=== PATIENT | female | born 1955 | race Caucasian/White ===

== ENCOUNTER 2017-03-27 13:34 | Emergency (ER) | payer SELFPAY ==
[2017-03-27] MEDS ORDERED: Ketorolac 60 MG/2 ML SDV IM ONE (15:00)
--- NOTE | 2017-03-27 15:20 | EDM.PDOC ---
ED HPI GENERAL MEDICAL PROBLEM - General Chief Complaint: ENT Problem Stated Complaint: FACIAL SWELLING, RIGHT SIDE Time Seen by Provider: 03/27/17 14:15 Source of Information: Reports: Patient, Provider History Limitations: Reports: No Limitations - History of Present Illness INITIAL COMMENTS - FREE TEXT/NARRATIVE: 61-year-old female is sent in from the clinic because of worsening right-sided facial swelling. Over the last 3 days she's developed pain and swelling on the right lateral face. It started with a localized pain just under the zygomatic area on the right side, she was seen yesterday and started on antibiotics but it seems to be worsening. No significant erythema, no fever. Severity: Moderate Associated Symptoms: Denies: Fever/Chills, Headaches, Shortness of Breath Right Face Pain Score (Numeric/FACES): 9 - Related Data Allergies Allergy/AdvReac Type Severity Reaction Status Date / Time acetaminophen [From Tylenol] Allergy Cannot Verified 03/27/17 13:52 Remember Home Meds: Home Meds Cephalexin [Cephalexin] 500 mg PO TID 03/27/17 [History] Cholecalciferol (Vitamin D3) [D3-2000] 2,000 - 4,000 unit PO DAILY 03/27/17 [ History] Cyanocobalamin (Vitamin B-12) [Vitamin B-12] 1,000 mcg PO ASDIRECTED 03/27/17 [ History] Multivitamin [Multivitamins] 1 tab PO DAILY 03/27/17 [History] Past Medical History [employer] History: Reports: - Infectious Disease History Infectious Disease History: Reports: Chicken Pox, Measles, Mumps - Past Surgical History HEENT Surgical History: Reports: Tonsillectomy Female Surgical History: Reports: Section Social & Family History - Caffeine Use Caffeine Use: Reports: Coffee - Recreational Drug Use Recreational Drug Use: No ED ROS ENT - Review of Systems Review Of Systems: See Below Constitutional: Denies: Fever, Chills, Malaise HEENT: Reports: Throat Pain, Other (Facial pain and swelling on the right side, she can feel some drainage) Respiratory: Denies: Shortness of Breath, Cough Cardiovascular: Denies: Chest Pain GI/Abdominal: Denies: Nausea, Vomiting ED EXAM, ENT - Physical Exam Exam: See Below Exam Limited By: No Limitations General Appearance: Alert, No Apparent Distress Eye Exam: Bilateral Eye: Normal Inspection Mouth/Throat: Other (Patient has tense swelling of the bucca mucosa on the right side, marked tenderness to palpation and a small amount of purulent exudate from the parotid duct on the right side. The swelling extends upward to the preauricular area and to the corner of the right mandible.) Course - Vital Signs Last Recorded V/S: Last Vital Signs Temp 98.5 F 03/27/17 13:58 Pulse 95 03/27/17 13:58 Resp 16 03/27/17 13:58 BP 184/90 H 03/27/17 13:58 Pulse Ox 98 03/27/17 13:58 - Orders/Labs/Meds Labs: Laboratory Tests 03/27/17 03/27/17 Range/Units 14:35 14:46 WBC 12.8 H (4.5-11.0) K/uL RBC 4.78 (3.30-5.50) M/uL Hgb 14.1 (12.0-15.0) g/dL Hct 42.0 (36.0-48.0) % MCV 88 (80-98) fL MCH 30 (27-31) pg MCHC 34 (32-36) % Plt Count 203 (150-400) K/uL Neut % (Auto) 76 H (36-66) % Lymph % (Auto) 12 L (24-44) % Toole % (Auto) 12 H (2-6) % Eos % (Auto) 1 L (2-4) % Baso % (Auto) 0 (0-1) % Sodium 141 (140-148) mmol/L Potassium 4.0 (3.6-5.2) mmol/L Chloride 103 (100-108) mmol/L Carbon Dioxide 28 (21-32) mmol/L Anion Gap 10.4 (5.0-14.0) mmol/L BUN 16 (7-18) mg/dL Creatinine 0.8 (0.6-1.0) mg/dL Est Cr Clr Drug Dosing 80.87 mL/min Estimated GFR (MDRD) > 60 (>60) Glucose 115 H (74-106) mg/dL Calcium 9.3 (8.5-10.1) mg/dL C-Reactive Protein 5.94 H (0.0-0.3) mg/dL Meds: Medications Discontinued Medications Generic Name Dose Route Start Last Admin Trade Name Ginger PRN Reason Stop Dose Admin Ketorolac Tromethamine 60 mg 03/27/17 15:00 03/27/17 15:03 Toradol IM 03/27/17 15:01 60 mg ONETIME ONE Administration - Re-Assessments/Exams Free Text/Narrative Re-Assessment/Exam: 03/27/17 16:12 ENT was consulted in [place] and [place]. The ENT physician agreed to see her tomorrow morning at 7:45 AM. She was given an injection of Toradol, some additional Toradol and tramadol for pain control. We discussed a CT scan but she did not want one done if they were going to repeat it tomorrow, I could not guarantee her they would not repeat the scan so she declined. Departure - Departure Time of Disposition: 15:30 Disposition: Home, Self-Care 01 Condition: Fair Clinical Impression: Acute suppurative parotitis - Discharge Information Instructions: Parotitis, [id number] Referrals: Rc Alfaro MD [Primary Care Provider] - Forms: ED Department Discharge Care Plan Goals: Continue antibiotic as prescribed, warm compresses to the cheek may help and use pain medications as prescribed. Recheck tomorrow morning as scheduled with ENT in [place], it may be beneficial to avoid eating or drinking anything after 3 AM.
== END 2017-03-27 15:30 | disposition home or self-care (01) ==
LOC: JP.ED 13:34
DX: K11.21 Acute sialoadenitis (principal); Z88.8 Allergy status to other drugs, medicaments and biological substances
CPT/HCPCS: 36415; 80048; 85025; 86140; 96372; 99284; J1885; 99283